=== PATIENT | male | born 1960 | race Caucasian/White ===

== ENCOUNTER 2018-01-28 14:15 | Emergency (ER) | payer BC, OTHER ==
[~2018-01-28] VITALS: Ht 175.3 cm; Wt 104.3 kg
--- NOTE | 2018-01-28 15:51 | Diagnostic Imaging Report ---
Right hand at 3:40 p.m. INDICATION: Four-wong injury, pain to first metacarpal. Three views were obtained. There are no prior studies available for comparison. FINDINGS: There is a faint linear lucency extending longitudinally through the base of the first metacarpal. This finding is questionable at best for a nondisplaced fracture. There is no other fracture or acute bony abnormality of the hand. However, there does appear to be a slightly impacted, slightly displaced fracture of the distal radial metaphysis. There is also an avulsion fracture of the ulnar styloid. I would recommended that a four-view study of the wrist joint be obtained for further evaluation. The soft tissues are unremarkable. IMPRESSION: 1. There is a question of a nondisplaced fracture involving the base of the first metacarpal. Clinical followup is recommended. 2. There is a slightly comminuted slightly impacted fracture of the distal radial metaphysis and avulsion fracture of the ulnar styloid. A right wrist exam would be recommended for further study. Dictated by: Dictated on workstation # [id number]
--- NOTE | 2018-01-28 16:16 | Diagnostic Imaging Report ---
Right wrist at 4:16 p.m. Three views were obtained. FINDINGS: As noted on the right hand exam, there is a slightly comminuted, slightly impacted fracture of the distal radial metaphysis. There is also an avulsion fracture of the ulnar styloid. No other fracture or acute bony abnormality involving the wrist joint is noted. There is mild narrowing of the radiocarpal joint. The soft tissues are unremarkable. IMPRESSION: There is a slightly impacted, slightly comminuted fracture of the distal radial metaphysis. There is also an avulsion fracture of the ulnar styloid. Dictated by: Dictated on workstation # [id number]
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
[2018-01-28 16:38] VITALS: BP 140/75
== END 2018-01-28 16:38 | disposition home or self-care (01) ==
LOC: ER 14:19
DX: S52.611A Displaced fracture of right ulna styloid process, initial encounter for closed fracture (principal); S59.201A Unspecified physeal fracture of lower end of radius, right arm, initial encounter for closed fracture; V86.09XA Driver of other special all-terrain or other off-road motor vehicle injured in traffic accident, initial encounter
CPT/HCPCS: 73110; 73130